=== PATIENT | female | born 1995 ===

== ENCOUNTER 2017-11-08 12:45 | Emergency (ER) | payer SELFPAY ==
[2017-11-08 12:46] VITALS: BMI 24.5
[2017-11-08 14:01] LABS: HCG,QUALITATIVE URINE NEGATIVE (NEGATIVE)
[2017-11-08 14:06] LABS: SQUAMOUS EPITHIAL 1 /hpf (0-5); URINE BILIRUBIN NEGATIVE (NEGATIVE); URINE BLOOD NEGATIVE (NEGATIVE); URINE CLARITY Hazy (Clear); URINE COLOR Yellow (YELLOW); URINE GLUCOSE (UA) NORMAL (Normal); URINE LEUKOCYTE ESTERASE NEG Leu/uL (Negative); URINE PROTEIN 1+ mg/dL (NEGATIVE)
[2017-11-08] MEDS ORDERED: Iohexol 240 (50 ml) PO STA (14:23)
[2017-11-08] MEDS ORDERED: Sodium Chloride 0.9% 1,000 ML IV STA (14:23)
[2017-11-08] MEDS ORDERED: Iohexol 240 (50 ml) ONE (14:44)
[2017-11-08 14:49] LABS: BASO % 0.3 % (0.0-2.0); EOS % 0.3 % (0.0-4.0); HEMOGLOBIN 13.4 g/dL (11.0-16.0); LYMPH # 0.9 K/uL (1.0-4.3); LYMPH % 23.1 % (20.0-40.0); MEAN CELL VOLUME 88.9 fL (81.0-99.0); MEAN CORPUSCULAR HEMOGLOBIN 30.9 pg (27.0-31.0); MEAN CORPUSCULAR HGB CONC 34.7 g/dL (33.0-37.0); MEAN PLATELET VOLUME 9.1 fL (7.2-11.7); MONO # 0.4 K/uL (0.0-0.8); MONO % 11.2 % (0.0-10.0); NEUT # 2.5 K/uL (1.8-7.0); NEUT % 65.1 % (50.0-75.0); RBC 4.33 Mil/uL (3.80-5.20); RED CELL DISTRIBUTION WIDTH 14.2 % (11.5-14.5); WHITE BLOOD COUNT 3.8 K/uL (4.8-10.8)
[2017-11-08 14:59] LABS: ALB/GLOB RATIO 1.1 (1.0-2.1); ALBUMIN 3.8 g/dL (3.5-5.0); ALT/SGPT 23 U/L (9-52); AST/SGOT 29 U/L (14-36); BLOOD UREA NITROGEN 15 mg/dL (7-17); GFR AFRICAN-AMERICAN > 60; GFR NON-AFRICAN AMERICAN > 60; LIPASE 48 U/L (23-300)
[2017-11-08] MEDS ORDERED: Iodixanol 320 MG/ML 100 ML BOTTLE IV ONE (15:52)
--- NOTE | 2017-11-08 17:24 | C.PDOC ---
History Of Present Illness 22 y/o female presents to the ED complaining of lower abdominal pain for 2 weeks. She also developed diarrhea today and reports she feels nauseous constantly. Denies any dysuria, vaginal bleeding, or vaginal discharge. Of note , months ago patient had an . She also began feeling febrile yesterday. Patient is sexually active. Time Seen by Provider: 11/08/17 13:25 Chief Complaint (Nursing): Abdominal Pain History Per: Patient History/Exam Limitations: no limitations Onset/Duration Of Symptoms: Days Current Symptoms Are (Timing): Still Present Past Medical History Reviewed: Historical Data, Nursing Documentation, Vital Signs Vital Signs: Last Vital Signs Temp 100 F H 11/08/17 21:11 Pulse 79 11/08/17 20:05 Resp 22 11/08/17 20:05 BP 99/67 L 11/08/17 20:05 Pulse Ox 97 11/08/17 20:34 - Medical History PMH: No Chronic Diseases Surgical History: - [facility] Procedures LOW CERVICAL (03/04/14) Family History: States: No Known Family Hx - Social History Hx Alcohol Use: No Hx Substance Use: No - Immunization History Hx Tetanus Toxoid Vaccination: No Hx Influenza Vaccination: No Hx Pneumococcal Vaccination: No Review Of Systems Except As Marked, All Systems Reviewed And Found Negative. Constitutional: Positive for: Fever Gastrointestinal: Positive for: Nausea, Abdominal Pain, Diarrhea. Negative for : Vomiting Physical Exam - Physical Exam Appears: Non-toxic, No Acute Distress Skin: Normal Color, Warm, Dry Head: Atraumatic, Normacephalic Eye(s): bilateral: Normal Inspection, PERRL, EOMI Oral Mucosa: Moist Neck: Normal ROM, Supple Chest: Symmetrical Cardiovascular: Rhythm Regular, No Murmur Respiratory: Normal Breath Sounds, No Accessory Muscle Use Gastrointestinal/Abdominal: Soft, Tenderness (Tenderness to lower abdomen bilaterally, no suprapubic tenderness), Guarding (mild), No Rebound Extremity: Bilateral: Atraumatic, Normal Color And Temperature, Normal ROM Neurological/Psych: Oriented x3, Normal Speech ED Course And Treatment - Laboratory Results Result Diagrams: 11/08/17 14:43 11/08/17 14:43 O2 Sat by Pulse Oximetry: 97 (RA) Pulse Ox Interpretation: Normal - CT Scan/US CT A/P Other Rad Studies (CT/US): Read By Radiologist, Radiology Report Reviewed CT/US Interpretation: FINDINGS: LOWER THORAX: Unremarkable. LIVER: The liver mildly enlarged measuring nearly 20 cm in CC dimension however this could be due to in part due to Kenyatta's lobe liver. The liver exhibits mild fatty hepatic infiltration. No obvious hepatic mass or collection. Portal and splenic veins are opacified. GALLBLADDER AND BILE DUCTS: Gallbladder physiologically distended. No evidence of intraluminal gallbladder calculi. PANCREAS: Unremarkable. No gross lesion or ductal dilatation. SPLEEN: Spleen exhibits normal size and attenuation pattern. ADRENALS: There are no adrenal lesions. KIDNEYS AND URETERS: Kidneys demonstrate symmetric nephrograms. No evidence of nephrolithiasis or hydronephrosis. VASCULATURE: Unremarkable. No aortic aneurysm. BOWEL: Evaluation of the bowel is somewhat limited due to incomplete opacification the stomach is significantly distended with air and oral contrast material. . There is a somewhat amorphous soft tissue density in the right mid to lower abdomen that probably represents slightly compressed unopacified loops of small bowel. A soft tissue masses on likely in this age group. There also appears to be a short segment of small bowel in the mid and left aspect of the pelvis best seen on axial image number [id number] that exhibits slight wall thickening. Rule out nonspecific enteritis (infectious or inflammatory). . APPENDIX: Appendix is not seen with any certainty. PERITONEUM: See below. No gross free intraperitoneal air. LYMPH NODES: Unremarkable. No enlarged lymph nodes. BLADDER: Urinary bladder is physiologically distended. No evidence of intraluminal urinary bladder calculi. REPRODUCTIVE: Questionable small involuting right adnexal cyst ( axial image number [id number]) and. adjacent small amount of periadnexal fluid. Recommend followup pelvic ultrasound. Recommend followup pelvic ultrasound to exclude other pathology including a TOA given the patient's history of recent instrumentation. BONES: Osseous structures appear intact. OTHER FINDINGS: None. IMPRESSION: Findings suggest localized enteritis involving the distal small bowel. There is in a amorphous soft tissue mass density in the right aspect of the abdomen that probably represents compressed under opacified loops of small bowel. Additionally, there are a few loops of distal small bowel in the left mid upper pelvis and left lower pelvis that exhibit wall thickening. Findings are nonspecific though the possibility of an enteritis must be excluded. Additionally, the appendix is not seen with any certainty on this study and the possibility of an acute appendicitis therefore cannot be excluded clinical correlation recommended. Consider repeat CT scan of the abdomen and pelvis with additional oral contrast material to further assess on and confirm soft tissue within the mid abdomen represents loops of under opacified small bowel. Questionable involuting right adnexal cyst and questionable adjacent small amount of periadnexal fluid. Recommend followup pelvic ultrasound to exclude other pathology including a TOA given the patient's history of recent instrumentation. Transvaginal US Other Rad Studies (CT/US): Read By Radiologist, Radiology Report Reviewed CT/US Interpretation: FINDINGS: Uterus/cervix: The uterus is anteverted. Endometrium measures 1.1 cm. No myometrial mass.No. intrauterine gestational sac is seen. Right ovary: There appears to be a right paraovarian cyst measuring 2 x 1.4 x 2.9 cm. Normal blood. flow. Left ovary: Unremarkable. No mass. Normal blood flow. Free fluid: Small volume of free fluid in the cul-de- sac. Prominent loops of bowel are noted incidentally. IMPRESSION: 1. There appears to be a right paraovarian cyst measuring 2 x 1.4 x 2.9 cm. 2. Small volume of free fluid in the cul-de-sac. Thank you for allowing us to participate in the care of your patient. Dictated and Authenticated by: Charbel Murillo MD. 11/08/2017 8:25 PM Eastern Time ([place] & [place]) Progress Note: Labs and CT scan ordered and reviewed. WBCs are not elevated. UA and Urine preg negative. Received call from radiologist Dr. Celaya, who is concerned about right-sided questionable structure and requests pelvic ultrasound. Surgical consult was ordered. Spoke with , surgery resident came down and evaluated patient at bedside. vice president of marketing cleared patient for discharge, feels that patient may have mild gastroenteritis. Patient is currently feels better and is stable to be d/c home. Disposition - Disposition Referrals: [facility] [Outside] [facility] [employer] [facility] [Outside] Disposition: HOME/ ROUTINE Disposition Time: 22:39 Condition: STABLE Additional Instructions: Follow up with PMD and [facility] AND RELEASE MANAGER within 1-2 days. Return to ED if feel worse. Prescriptions: Dicyclomine [Bentyl] 20 mg PO TID #30 tab Doxycycline Hyclate [Doryx] 100 mg PO BID #20 cap Instructions: Acute Abdomen (Belly Pain) Forms: [employer] (Sami) - Clinical Impression Clinical Impression: Abdominal pain - PA / CST / Resident Statement MD/DO has reviewed & agrees with the documentation as recorded. - Scribe Statement The provider has reviewed the documentation as recorded by the Scribe (Maryjane Dennison) All medical record entries made by the Scribe were at my direction and personally dictated by me. I have reviewed the chart and agree that the record accurately reflects my personal performance of the history, physical exam, medical decision making, and the department course for this patient. I have also personally directed, reviewed, and agree with the discharge instructions and disposition.
--- NOTE | 2017-11-08 18:51 | CT ---
PROCEDURE: CT abdomen pelvis dated 11/08/2017. HISTORY: Lower abdominal pain, fever COMPARISON: Comparison made with plain film radiographs of the abdomen 08/23/2015. TECHNIQUE: Contiguous helical/transaxial sections of the abdomen pelvis performed following oral and intravenous injection approximately 100 cc Visipaque 320. Additional 2D sagittal and coronal reformats provided Radiation dose: Total exam DLP = 331.26 mGy-cm. This CT exam was performed using one or more of the following dose reduction techniques: Automated exposure control, adjustment of the mA and/or kV according to patient size, and/or use of iterative reconstruction technique. FINDINGS: LOWER THORAX: Unremarkable. LIVER: The liver mildly enlarged measuring nearly 20 cm in CC dimension however this could be due to in part due to Kenyatta's lobe liver. The liver exhibits mild fatty hepatic infiltration. No obvious hepatic mass or collection. Portal and splenic veins are opacified. GALLBLADDER AND BILE DUCTS: Gallbladder physiologically distended. No evidence of intraluminal gallbladder calculi. PANCREAS: Unremarkable. No gross lesion or ductal dilatation. SPLEEN: Spleen exhibits normal size and attenuation pattern ADRENALS: There are no adrenal lesions. KIDNEYS AND URETERS: Kidneys demonstrate symmetric nephrograms. No evidence of nephrolithiasis or hydronephrosis. VASCULATURE: Unremarkable. No aortic aneurysm. BOWEL: Evaluation of the bowel is somewhat limited due to incomplete opacification the stomach is significantly distended with air and oral contrast material. . There is a somewhat amorphous soft tissue density in the right mid to lower abdomen that probably represents slightly compressed unopacified loops of small bowel. A soft tissue masses on likely in this age group. There also appears to be a short segment of small bowel in the mid and left aspect of the pelvis best seen on axial image number [id number] that exhibits slight wall thickening. Rule out nonspecific enteritis (infectious or inflammatory). . APPENDIX: Appendix is not seen with any certainty. PERITONEUM: See below. No gross free intraperitoneal air. LYMPH NODES: Unremarkable. No enlarged lymph nodes. BLADDER: Urinary bladder is physiologically distended. No evidence of intraluminal urinary bladder calculi. REPRODUCTIVE: Questionable small involuting right adnexal cyst (axial image number [id number]) and adjacent small amount of periadnexal fluid. Recommend followup pelvic ultrasound. Recommend followup pelvic ultrasound to exclude other pathology including a TOA given the patient's history of recent instrumentation BONES: Osseous structures appear intact. OTHER FINDINGS: None. IMPRESSION: Findings suggest localized enteritis involving the distal small bowel. There is in a amorphous soft tissue mass density in the right aspect of the abdomen that probably represents compressed under opacified loops of small bowel. Additionally, there are a few loops of distal small bowel in the left mid upper pelvis and left lower pelvis that exhibit wall thickening. Findings are nonspecific though the possibility of an enteritis must be excluded. Additionally, the appendix is not seen with any certainty on this study and the possibility of an acute appendicitis therefore cannot be excluded clinical correlation recommended. Consider repeat CT scan of the abdomen and pelvis with additional oral contrast material to further assess on and confirm soft tissue within the mid abdomen represents loops of under opacified small bowel Questionable involuting right adnexal cyst and questionable adjacent small amount of periadnexal fluid. Recommend followup pelvic ultrasound to exclude other pathology including a TOA given the patient's history of recent instrumentation.
[2017-11-08 20:06] VITALS: BP 99/67; RESP 22
[2017-11-08 23:13] VITALS: PULSE 80; TEMP 99
--- NOTE | 2017-11-08 23:28 | CP.PCM.CON ---
History of Present Illness - History of Present Illness History of Present Illness: General surgery consult note for Dr. Saida Dias, PGY-1 Pt S & E at bedside at 2150 22F w/no sig PMH consulted for suprapubic abdominal pain x 1 week. Pt reports that she had recent approximately 1 mo ago, noted that she started to have intermittent, non radiating, moderate-severe suprapubic abdominal pain approximately 3 weeks ago that lasted for approximately 1 week. Pain resolved for 1 week, then recurred last week. Pain is aggravated by movement, coughing, laughing. No alleviating factors identified. Pt reports that last night she noted fever (did not take her temperature at home), chills and nausea. On day of evaluation, pt had 1 episode of emesis (non bloody, non bilious, clear fluid) , one episode of diarrhea (no hematuria, liquid). Admits to poor appetite on day of evaluation, ate plantains, salami, chicken and rice on day prior to evaluation. Admits to recent "strong smelling, clear" discharge from vagina. Denies sick contacts, headache, dizziness, chest pain, SOB, URI symptoms, sore throat, dysuria, urinary frequency, hematuria, hematochezia, dysparenuria. In ED- slightly febrile, Tmax 100.6. No leukocytosis. CT ab w/findings of local enteritis, amorphous soft tissue masas in R aspect of abdomen - possiblly compressed opacified loops of small bowel, few loops of small bowel with wall thickening, appendix not visualized. Transvaginal u/s obtained w/findings of R para-ovarian cyst (2 x 1.4 x 2.9cm). PMH: Denies PSH: x 3 (last one in 10/2017), x 1 All: NKDA SH: Denies ETOH, tobacco or illicit drug use; sexually active with 1 partner, does not use condoms FH: Non contributory Review of Systems - Review of Systems All systems: reviewed and no additional remarkable complaints except - Constitutional Constitutional: Chills, Fever, Night Sweats. absent: Headache, Weakness - EENT Eyes: absent: Blurred Vision, Change in Vision Ears: absent: Dizziness Nose/Mouth/Throat: absent: Sore Throat - Cardiovascular Cardiovascular: absent: Chest Pain - Respiratory Respiratory: absent: Cough - Gastrointestinal Gastrointestinal: Abdominal Pain, Change in Bowel Habits, Change in Stool Character, Diarrhea, Nausea, Vomiting. absent: Constipation, Hematemesis, Hematochezia, Melena - Genitourinary Genitourinary: absent: Change in Urinary Stream, Difficulty Urinating, Dysuria, Flank Pain, Hematuria, Urinary Frequency, Urinary Urgency, Voiding Freq/Small Amts - Reproductive: Female Reproductive:Female: Currently Menstual, Vaginal Discharge, Vaginal Odor. absent: Dyspareunia, Pelvic Pain - Musculoskeletal Musculoskeletal: absent: Muscle Weakness, Numbness, Tingling - Integumentary Integumentary: absent: New Lesions - Neurological Neurological: absent: Weakness Past Patient History - Past Social History Smoking Status: Never Smoked - PSYCHIATRIC Hx Substance Use: No - SURGICAL HISTORY Hx Section: Yes - ANESTHESIA Hx Anesthesia: Yes Hx Anesthesia Reactions: No Meds Home Medications: Home Medication List Medication Instructions Recorded Confirmed Type Dicyclomine [Bentyl] 20 mg PO TID #30 tab 11/08/17 Rx Doxycycline Hyclate [Doryx] 100 mg PO BID #20 cap 11/08/17 Rx Allergies/Adverse Reactions: Allergies Allergy/AdvReac Type Severity Reaction Status Date / Time No Known Allergies Allergy Verified 08/23/15 22:41 Physical Exam - Constitutional Appears: Non-toxic, No Acute Distress - Head Exam Head Exam: ATRAUMATIC, NORMAL INSPECTION, NORMOCEPHALIC - Eye Exam Eye Exam: EOMI, Normal appearance - ENT Exam ENT Exam: Mucous Membranes Moist, Normal Exam - Neck Exam Neck exam: Positive for: Full Rom, Normal Inspection - Respiratory Exam Respiratory Exam: Clear to Auscultation Bilateral, NORMAL BREATHING PATTERN. absent: Rales, Rhonchi, Wheezes, Respiratory Distress - Cardiovascular Exam Cardiovascular Exam: REGULAR RHYTHM, +S1, +S2 - GI/Abdominal Exam GI & Abdominal Exam: Normal Bowel Sounds, Soft. absent: Distended, Firm, Guarding, Hernia, Rebound, Rigid, Tenderness Additional comments: negative McBurney's point tenderness Umbilical ring in place - Exam Speculum exam: NORMAL SPECULUM EXAM, Vaginal Bleeding (dark red blood in vaginal vault and at cervix). absent: Cervical Discharge, Erythema, Laceration , Vaginal Discharge Bimanual exam: NORMAL BIMANUAL EXAM. absent: Cervical Motion Tendernes, Uterine Tenderness - Extremities Exam Extremities exam: Positive for: full ROM, normal inspection. Negative for: pedal edema - Back Exam Back exam: NORMAL INSPECTION. absent: CVA tenderness (L), CVA tenderness (R) - Neurological Exam Neurological exam: Alert, CN II-XII Intact, Normal Gait, Oriented x3 - Psychiatric Exam Psychiatric exam: Normal Affect, Normal Mood - Skin Skin Exam: Dry, Intact, Normal Color, Warm Results - Vital Signs Recent Vital Signs: Last Vital Signs Temp 99 F 11/08/17 23:09 Pulse 80 11/08/17 23:09 Resp 22 11/08/17 23:09 BP 99/67 L 11/08/17 20:05 Pulse Ox 98 11/08/17 23:09 - Labs Result Diagrams: 11/08/17 14:43 11/08/17 14:43 Labs: Laboratory Results - last 24 hr 11/08/17 11/08/17 11/08/17 13:41 14:43 14:43 WBC 3.8 L D RBC 4.33 Hgb 13.4 D Hct 38.5 MCV 88.9 D MCH 30.9 MCHC 34.7 RDW 14.2 Plt Count 170 MPV 9.1 Neut % (Auto) 65.1 Lymph % (Auto) 23.1 [place] % (Auto) 11.2 H Eos % (Auto) 0.3 Baso % (Auto) 0.3 Neut # (Auto) 2.5 Lymph # (Auto) 0.9 L [place] # (Auto) 0.4 Eos # (Auto) 0.0 Baso # (Auto) 0.0 Sodium 140 Potassium 3.9 Chloride 104 Carbon Dioxide 22 Anion Gap 18 BUN 15 Creatinine 0.6 L Est GFR ( Amer) > 60 Est GFR (Non-Af Amer) > 60 Random Glucose 83 Calcium 9.0 Total Bilirubin 0.9 AST 29 ALT 23 Alkaline Phosphatase 82 Total Protein 7.4 Albumin 3.8 Globulin 3.6 Albumin/Globulin Ratio 1.1 Lipase 48 Urine Color Yellow Urine Clarity Hazy Urine pH 5.0 Ur Specific [place] 1.031 H Urine Protein 1+ H Urine Glucose (UA) Normal Urine Ketones Trace Urine Blood Negative Urine Nitrate Negative Urine Bilirubin Negative Urine Urobilinogen 2.0 H Ur Leukocyte Esterase Neg Urine WBC (Auto) 1 Urine RBC (Auto) 1 Ur Squamous Epith Cells 1 Urine HCG, Qual Negative Assessment & Plan - Assessment and Plan (Free Text) Assessment: 22F w/no sig PMH consulted for suprapubic abdominal pain Plan: No general surgical intervention at this time Likely enteritis with underlying gynecological issue Recommend outpatient follow up with stitch bonding machine drawer in for further evaluation Recommend IV hydration prior to discharge DW attending Larissa, PGY-1 - Date & Time Date: 11/08/17 Time: 21:50
--- NOTE | 2017-11-09 08:09 | US ---
HISTORY: low abdominal pain. ? CT findings COMPARISON: None available. TECHNIQUE: Transabdominal and transvaginal FINDINGS: UTERUS: Measures 8.4 x 4.1 x 6.0 cm. Normal in size and appearance. No fibroid or other mass lesion seen. ENDOMETRIUM: Measures 11 mm in diameter. No endometrial fluid. No intrauterine gestation. CERVIX: No cervical abnormality identified. RIGHT OVARY: Measures 3.9 x 2.6 x 2.5 cm. No solid mass. Normal flow. Para ovarian simple cyst, 1.4 x 2.0 x 2.9 cm. LEFT OVARY: Measures 3.7 x 2.0 x 2.6 cm. No solid mass. Normal flow. FREE FLUID: There is a small amount of free fluid in the cul-de-sac. OTHER FINDINGS: None. IMPRESSION: No 8 intrauterine gestation. No endometrial fluid/ hemorrhage. Simple 2.9 cm right paraovarian cyst. Small amount of free fluid in cul-de-sac. Preliminary interpretation of this examination was reported by [id number] [facility] at 8:25 p.m. on 11/08/2017. There is concurrence of this report with the preliminary interpretation.
[2017-11-09 12:41] VITALS: O2SAT 97
== END 2017-11-08 23:09 | disposition home or self-care (01) ==
LOC: C.ER 12:45
DX: R10.30 Lower abdominal pain, unspecified (principal)
CPT/HCPCS: 74177; 76830; 76856; 80053; 81001; 83690; 84703; 85025; 96360; 99285; J7040; Q9966; Q9967